=== PATIENT | male | born 1975 | race African-American/Black ===

== ENCOUNTER 2019-03-27 16:38 | Emergency (ER) | payer BC, SELFPAY ==
[2019-03-27] MEDS ORDERED: Acetaminophen 500 MG TAB ONE (19:02)
[2019-03-27] MEDS ORDERED: Ketorolac Tromethamine 30 MG/ML VIAL ONE (19:02)
[2019-03-27] MEDS ORDERED: Dexamethasone 4 mg/ml Vial ONE (19:02)
== END 2019-03-27 19:43 | disposition home or self-care (01) ==
LOC: ERS 16:38
DX: M62.838 Other muscle spasm (principal); R51 Headache; I10 Essential (primary) hypertension; J45.909 Unspecified asthma, uncomplicated; K21.9 Gastro-esophageal reflux disease without esophagitis; F31.9 Bipolar disorder, unspecified; Z79.51 Long term (current) use of inhaled steroids; Z79.899 Other long term (current) drug therapy
CPT/HCPCS: 93005; 96372; J1100; J1885